=== PATIENT | male | born 1940 | race Caucasian/White ===

== ENCOUNTER 2021-11-16 06:54 | Outpatient (CLI) | payer OTHER ==
[~2021-11-16 06:54] MED LIST: AMLODIPINE BESYL5 MG; AVAPRO150 MG; CARVEDILOL6.25 MG; LEVOTHYROXINE75 MCG
== END 2021-11-16 06:55 | disposition home or self-care (01) ==
LOC: LAB 06:54
PROVIDERS: ATTEND Internal Medicine
DX: I11.9 Hypertensive heart disease without heart failure (principal); E03.9 Hypothyroidism, unspecified; E78.2 Mixed hyperlipidemia; N40.0 Benign prostatic hyperplasia without lower urinary tract symptoms; I13.10 Hypertensive heart and chronic kidney disease without heart failure, with stage 1 through stage 4 chronic kidney disease, or unspecified chronic kidney disease; R73.01 Impaired fasting glucose; R10.9 Unspecified abdominal pain; I25.10 Atherosclerotic heart disease of native coronary artery without angina pectoris; Z12.12 Encounter for screening for malignant neoplasm of rectum; Z12.11 Encounter for screening for malignant neoplasm of colon; Z12.5 Encounter for screening for malignant neoplasm of prostate; Z13.29 Encounter for screening for other suspected endocrine disorder

== ENCOUNTER 2021-11-16 08:28 | Outpatient (CLI) | payer OTHER | END 2021-11-16 08:33 | disposition home or self-care (01) | LOC: SONOGRAMA 08:28 | PROVIDERS: ATTEND Internal Medicine | DX: N40.0 Benign prostatic hyperplasia without lower urinary tract symptoms (principal); I13.10 Hypertensive heart and chronic kidney disease without heart failure, with stage 1 through stage 4 chronic kidney disease, or unspecified chronic kidney disease; R10.9 Unspecified abdominal pain ==

== ENCOUNTER 2021-11-16 09:45 | Outpatient (CLI) | payer OTHER | END 2021-11-16 09:46 | disposition home or self-care (01) | LOC: NUCLEAR 09:45 | PROVIDERS: ATTEND Internal Medicine | DX: I13.10 Hypertensive heart and chronic kidney disease without heart failure, with stage 1 through stage 4 chronic kidney disease, or unspecified chronic kidney disease (principal); I25.10 Atherosclerotic heart disease of native coronary artery without angina pectoris; Z91.011 Allergy to milk products ==

== ENCOUNTER 2022-11-20 06:35 | Emergency (ER) | payer OTHER ==
[~2022-11-20] VITALS: Ht 180.3 cm; Wt 73.0 kg
[2022-11-20] MEDS ORDERED: CRESTOR5 MG PO (07:09)
== END 2022-11-20 09:34 | disposition home or self-care (01) ==
LOC: ER 06:36
DX: S60.211A Contusion of right wrist, initial encounter (principal); S70.01XA Contusion of right hip, initial encounter; W18.39XA Other fall on same level, initial encounter; Y93.89 Activity, other specified; Y92.018 Other place in single-family (private) house as the place of occurrence of the external cause; Y99.9 Unspecified external cause status; Z91.011 Allergy to milk products; E03.9 Hypothyroidism, unspecified